=== PATIENT | female | born 1960 | race Caucasian/White ===

== ENCOUNTER 2020-05-23 08:00 | Outpatient (CLI) | payer OTHER | END 2020-05-23 23:59 | disposition home or self-care (01) | LOC: LAB.R 08:00 | PROVIDERS: ATTEND Physician Assistant Medical | DX: J02.9 Acute pharyngitis, unspecified (principal) | CPT/HCPCS: 87070 ==

== ENCOUNTER 2020-06-04 08:00 | Outpatient (CLI) | payer OTHER ==
[2020-06-04 19:46] LABS: CANDIDA GROUP DNA NEGATIVE (NEGATIVE); CANDIDA KRUSEI DNA NEGATIVE (NEGATIVE); TRICHOMONAS VAGINALIS DNA NEGATIVE (NEGATIVE)
== END 2020-06-04 23:59 | disposition home or self-care (01) ==
LOC: LAB.R 08:00
PROVIDERS: ATTEND Emergency Medicine
DX: B37.3 Candidiasis of vulva and vagina (principal)
CPT/HCPCS: 87661; 87801

== ENCOUNTER 2020-09-13 17:53 | Outpatient (CLI) | payer OTHER ==
[2020-09-13 19:45] LABS: BASOPHILS # (AUTO) 0.1 10^3/uL (0.0-0.1); BASOPHILS % (AUTO) 0.6 %; EOSINOPHILS # (AUTO) 0.4 10^3/uL (0.0-0.7); EOSINOPHILS % (AUTO) 3.9 %; HGB - HEMOGLOBIN 13.3 g/dL (12.0-16.0); LYMPHOCYTES # (AUTO) 3.2 10^3/uL (1.5-3.5); LYMPHOCYTES % (AUTO) 33.7 %; MEAN CORPUSCULAR HEMOGLOBIN 30.7 pg (27.0-31.0); MEAN CORPUSCULAR HGB CONC 32.3 g/dL (32.0-36.0); MEAN CORPUSCULAR VOLUME 95.2 fL (81.0-99.0); MEAN PLATELET VOLUME 10.2 fL (7.9-10.8); MONOCYTES # (AUTO) 0.7 10^3/uL (0.0-1.0); MONOCYTES % (AUTO) 6.9 %; NEUTROPHILS # (AUTO) 5.2 10^3/uL (1.5-6.6); NEUTROPHILS % (AUTO) 54.7 %; PLT - PLATELET COUNT 320 10^3/uL (130-450); RED BLOOD COUNT 4.33 10^6/uL (4.20-5.40); WHITE BLOOD COUNT 9.5 x10^3/uL (4.8-10.8)
[2020-09-13 20:06] LABS: ALBUMIN 3.8 g/dL (3.2-5.5); ALBUMIN/GLOBULIN RATIO 1.1 (1.0-2.2); BILIRUBIN,TOTAL 0.5 mg/dL (0.2-1.0); CALCIUM 9.9 mg/dL (8.5-10.3); CREATININE 0.8 mg/dL (0.4-1.0); TOTAL PROTEIN 7.3 g/dL (6.7-8.2)
== END 2020-09-13 17:54 | disposition home or self-care (01) ==
LOC: LAB.S 17:53
PROVIDERS: ATTEND Internal Medicine
DX: I10 Essential (primary) hypertension (principal); E03.9 Hypothyroidism, unspecified; E11.8 Type 2 diabetes mellitus with unspecified complications; Z79.4 Long term (current) use of insulin
CPT/HCPCS: 36415; 80053; 82985; 83036; 84443; 85025

== ENCOUNTER 2020-11-01 18:14 | Outpatient (CLI) | payer OTHER ==
[2020-11-01 20:20] LABS: CREATININE,URINE 109.1 mg/dL; MICROALBUMIN,URINE 3.6 mg/dL (0-300.0)
== END 2020-11-01 18:15 | disposition home or self-care (01) ==
LOC: LAB.S 18:14
PROVIDERS: ATTEND Internal Medicine
DX: E11.8 Type 2 diabetes mellitus with unspecified complications (principal); Z79.4 Long term (current) use of insulin
CPT/HCPCS: 36415; 82043; 82570; 82985

== ENCOUNTER 2021-01-14 13:31 | Outpatient (CLI) | payer OTHER ==
[2021-01-14 18:19] LABS: ALBUMIN 3.8 g/dL (3.2-5.5); ALBUMIN/GLOBULIN RATIO 1.2 (1.0-2.2); BILIRUBIN,TOTAL 0.6 mg/dL (0.2-1.0); CALCIUM 9.4 mg/dL (8.5-10.3); CREATININE 0.8 mg/dL (0.4-1.0); POTASSIUM 4.2 mmol/L (3.5-5.0)
[2021-01-14 21:36] LABS: ESTIMATED AVERAGE GLUCOSE 243 mg/dL (70-100); HEMOGLOBIN A1c% 10.1 % (4.27-6.07)
== END 2021-01-14 13:32 | disposition home or self-care (01) ==
LOC: LAB.S 13:31
PROVIDERS: ATTEND Internal Medicine
DX: I10 Essential (primary) hypertension (principal); E55.9 Vitamin D deficiency, unspecified; E11.8 Type 2 diabetes mellitus with unspecified complications; Z79.4 Long term (current) use of insulin
CPT/HCPCS: 36415; 80053; 82306; 82985; 83036

== ENCOUNTER 2021-01-27 13:16 | Outpatient (CLI) | payer OTHER ==
[2021-01-27 14:04] VITALS: BP 139/87
--- NOTE | 2021-01-27 14:04 | SLEEP CARE CONSULTATION ---
Information from patient questionnaire entered by Briana Jenkins. I have reviewed and concur with the information entered by Briana Jenkins. This document represents the service I personally performed and the decisions made by me, Laura Mendoza ARNP. History of Present Illness Service Date and Time: 01/27/2021 1316 Reason for Visit: New patient, Previously diagnosed sleep apnea Chief Complaint: reports: Unrefreshed sleep, Excessive daytime sleepiness, Fa tigue, Frequent awakenings at night Date of Onset: 15 years Usual bedtime: 11 pm Time it takes to fall asleep: 30-45 minutes Snores at night: No (unknown) Observed to quit breathing while asleep: No Number of times waking at night: 5-6 Reasons for waking at night: reports: Pain, Bathroom. denies: Choking, Gasping for air Toss, Turn, or Twitch while sleeping: No Recalls having dreams: No Usually gets out of bed at: 6:30 am Feels refreshed in the morning: No Morning headache: No Sleepy or fatigued during the day: Yes Ever fallen asleep while driving: No (almost; drowsy driving, no accidents) Takes day naps: No Dreams during day naps: No Prior sleep studies: Yes Year and Where: [facility] - long time ago Additional HPI information: I had the pleasure of seeing JAZLYN RAUSCH who was previously diagnosed with sleep apnea, she does not know severity. Her current complaints are excessive daytime sleepiness, fatigue, frequent night awakenings and unrefreshed sleep. She has not used a CPAP for about 20 years. She does not still have a copy of the previous sleep study. She does not know if she snores, no observed pauses and she denies gasping or choking in her sleep. She comes in today because her doctors have been encouraging her to get retested. She had a heart stent placed about 3 years ago, 01/2019. More recently she is having memory problems that are affecting her job. 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 Patient is and l rubén in [place]. Have you smoked in the past 12 months: No Alcohol use: No Caffeine use: Yes Caffeine amount and frequency: 1 cup of coffee 5 times a week Family History Family history of sleep disordered breathing: No Allergies and Home Medications Drug allergies reviewed: Yes (Benzoyal peroxide ) Home medication list reviewed: Yes (she did not bring list with her) Review of Systems Weight gain over past 5 years: 185 Weight loss over past 5 years: 170 Cardiovascular: reports: high blood pressure, leg or foot swelling, have to sleep sitting up Gastrointestinal: reports: heartburn, diarrhea Urinary: reports: incontinence, frequency, urgency Neurological: reports: gait or balance problems. denies: headaches Psychiatric: reports: anxiety, depression Ear/Nose/Throat: reports: dry mouth/throat, tonsillectomy, wisdom teeth removed Endocrine: reports: thyroid disease, sluggishness, excessive thirst, increased appetite, increased urination Musculoskeletal: reports: joint pain, neck pain, back pain, joint swelling, muscle pain or cramping, mobility problems Immunologic: denies: allergies to food or environment Physical Exam Blood Pressure: 139/87 Cuff size: wrist Heart Rate: 99 O2 Saturation: 96 Height: 5 ft 6 in Weight: 293 lb Body Mass Index: 47.2 BMI Classification: Morbidly Obese Impression and Plan 1. Suspected Obstructive Sleep Apnea-Hypopnea Syndrome, as previously diagnosed and suggested by a history of frequent awakening during the night, unrefreshed sleep, cognitive impairment, and excessive daytime sleepiness. I recommend proceeding to polysomnography to confirm the diagnosis and to assess severity. Patient is aware of what the sleep studies involve and we obtained agreement to proceed. The pathophysiology of obstructive sleep apnea-hypopnea syndrome was discussed with the patient and health risks of cardiovascular and cerebr ovascular disease if not treated. 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 Patient agreed to plan. Patient did not bring in a current list of her medications and does not remember them. She was asked to bring in list at next appointment. She voiced agreement. * Schedule polysomnography +- manual CPAP titration study and return in 1-2 weeks after the study to discuss result and initiate therapy. * Bring in medication list * Avoid long distance driving or driving when feeling sleepy. * Avoid alcohol, sedative and muscle relaxant around bedtime. * Attempt to lose weight. * Review instructions provided by trained office staff on how to prepare for the sleep study. * Return for follow-up after sleep study completed. Counseling Topics: Weight loss health impact Visit Type: In Office Time Spent with Patient (minutes): 25 Provider Statement: I spent 100% of the Face to Face Visit with the patient with greater than 50% spent counseling the patient and coordination of care.
== END 2021-01-27 13:17 | disposition home or self-care (01) ==
LOC: SC 13:16
PROVIDERS: ATTEND Nurse Practitioner Family
DX: G47.10 Hypersomnia, unspecified (principal); G47.8 Other sleep disorders; R41.89 Other symptoms and signs involving cognitive functions and awareness; E66.01 Morbid (severe) obesity due to excess calories; Z68.42 Body mass index [BMI] 45.0-49.9, adult
CPT/HCPCS: 99202; 99212

== ENCOUNTER 2021-02-10 10:18 | Outpatient (CLI) | payer OTHER | END 2021-02-10 10:19 | disposition home or self-care (01) | LOC: SC 10:18 | PROVIDERS: ATTEND Nurse Practitioner Family | DX: G47.33 Obstructive sleep apnea (adult) (pediatric) (principal); R00.0 Tachycardia, unspecified; R09.02 Hypoxemia; E66.01 Morbid (severe) obesity due to excess calories; Z68.42 Body mass index [BMI] 45.0-49.9, adult | CPT/HCPCS: 95806 ==

== ENCOUNTER 2021-02-21 16:19 | Outpatient (CLI) | payer OTHER ==
--- NOTE | 2021-02-21 16:43 | SLEEP CARE CONSULTATION ---
Information from patient questionnaire entered by Beni Galindo. I have reviewed and concur with the information entered by Beni Galindo. This document represents the service I personally performed and the decisions made by me, Laura Mendoza ARNP. History of Present Illness Service Date and Time: 02/21/2021 1619 Initial [place] Sleepiness Scale score: 17 (in 2020) Current [place] Sleepiness Scale score: 17 Additional HPI information: JAZLYN RAUSCH returns for follow up and results of the recently performed home sleep study. I explained the pathophysiology behind obstructive sleep apnea. We then spent quite a bit of time discussing different treatment options. For mild obstructive sleep apnea, surgery and oral appliance are alternatives to nasal CPAP therapy but in moderate or severe cases, nasal CPAP is the most effective and reliable treatment. Because apnea is primarily in supine position, then positional management therapy could be effective. Methods discussed such as positioning with pillows, using a T-shirt with tennis balls in the back, and shown commercial products that have a pillow format on back to prevent supine sleep. I reviewed the impact of weight changes on sleep apnea and strongly recommended losing weight. After some discussion, the patient opted to go with the nasal CPAP therapy. Nasal autoCPAP set at 4-15 cmH20 will be ordered with rationale explained. A manual titration study will be ordered if unable to find optimal pressure with office adjustments. I explained how CPAP machine works with sample devices Respironics Dreamstation and [employer] [id number] and what to expect when using the machine. Using CPAP every night in order to get used to it was emphasized. Patient advised to put CPAP mask on before getting into bed so as not to fall asleep without CPAP. To assist acclimation to CPAP use, it could also be used for a short time during day while reading or watching TV. The patient was instructed to call the CPAP supplier to discuss any mechanical problem that may occur. If the mask given is uncomfortable or is difficult to keep on through the night even with adjustment, contact the CPAP supplier as many will replace with another mask style if notified before 30 days. If snoring or perceives is not getting enough air or too much air from the machine, notify this office. [facility] patient education PAP tips reviewed and given to patient. Patient does not drink alcohol. Patient was cautioned about risks of drowsy driving until sleepiness symptoms resolve. Sleep Study - Results Type of Sleep Study: Home sleep study Prior sleep studies: Yes Year and Where: - long time ago Polysomnography/Home Sleep Study results: Physician Impression: The quality of the study is good. The length of the study is adequate (> 240 minutes). Please also see the tabulated and graphic data. 1. Obstructive Sleep Apnea-Hypopnea (ICD-10 G47.33), mild, with an AHI of 5.9/hr and melinda SaO2 of 78%. During the study, the patient had 14 apneas (13 obstructive, 0 central, 1 mixed) and 38 hypopneas. The longest episode lasted 83.0 seconds. The patient did not sleep supine during this study. (supine AHI was 0, and non-supine, 5.90). 2. Hypoxemia (ICD-10 R09.02), moderate, with the lowest oxygen saturation of 78 % and 7.0 minutes with SaO2 under 90%. Baseline oxygen saturation was normal (Average oxygen saturation was 94%). 3. Tachycardia with heart rate between 90 and 120 beats per minute. Allergies and Home Medications Home medication list reviewed: Yes (no changes) Review of Systems Review of systems same as previous: Yes (no changes) Physical Exam Heart Rate: 87 O2 Saturation: 97 Height: 5 ft 7.2 in Weight: 295 lb Body Mass Index: 45.9 BMI Classification: Morbidly Obese Impression and Plan 1. Obstructive Sleep Apnea-Hypopnea Syndrome, mild, with lowest oxygen saturation of 78%. Obviously this is the cause of the patients symptoms of unrefreshed sleep, and excessive daytime sleepiness. Positive pressure therapy could benefit hypertension, diabetes, coronary heart disease, anxiety, depression and gastric reflux. As mentioned above, the patient will be started on nasal autoCPAP therapy with pressure set at 4-15 cmH2O. A manual titration study will be completed if unable to find optimal treatment pressure with office adjustments. Compliance guidelines also reviewed. A copy of compliance guidelines will be given for reference at check out. Because the apnea is more severe supine, I instructed to avoid sleeping supine using pillow positioning until able to start CPAP use. 2. Hypoxemia, moderate, with the lowest oxygen saturation of 78 % and 7.0 minutes with SaO2 under 90%. His baseline oxygen saturation was normal with an average oxygen saturation of 94%. 3. Tachycardia, unspecified. HST recorded heart rate between 90 and 120 beats per minute. It is recommended that the patient may need an EKG to check cardiac rhythm for any abnormalities. Patient advised to follow up with PCP for rapid heart rate. * Nasal auto CPAP therapy, pressure at 4-15 cm H2O. * Follow up with PCP for tachycardia * Attempt to lose weight. * Avoid alcohol consumption near bedtime. * Avoid supine sleep until using CPAP. * The patient is again cautioned about driving until sleepiness completely resolves. * Return one month after CPAP obtained. I will assess response to therapy and compliance at that time. Counseling Topics: Weight loss health impact Visit Type: In Office Time Spent with Patient (minutes): 21 Provider Statement: I spent 100% of the Face to Face Visit with the patient with greater than 50% spent counseling the patient and coordination of care.
== END 2021-02-21 16:20 | disposition home or self-care (01) ==
LOC: SC 16:19
PROVIDERS: ATTEND Nurse Practitioner Family
DX: G47.33 Obstructive sleep apnea (adult) (pediatric) (principal); R00.0 Tachycardia, unspecified; E66.01 Morbid (severe) obesity due to excess calories; Z68.42 Body mass index [BMI] 45.0-49.9, adult
CPT/HCPCS: 99212; 99213

== ENCOUNTER 2021-03-04 13:50 | Outpatient (CLI) | payer OTHER | END 2021-03-04 13:51 | disposition home or self-care (01) | LOC: LAB.S 13:50 | PROVIDERS: ATTEND Internal Medicine | DX: E11.8 Type 2 diabetes mellitus with unspecified complications (principal); Z79.4 Long term (current) use of insulin | CPT/HCPCS: 82985 ==

== ENCOUNTER 2021-04-07 15:36 | Outpatient (CLI) | payer OTHER | END 2021-04-07 15:37 | disposition short-term general hospital (02) | LOC: EMS 15:36 | DX: R07.89 Other chest pain (principal); R11.0 Nausea; R06.02 Shortness of breath; M79.602 Pain in left arm; R42 Dizziness and giddiness | CPT/HCPCS: A0425; A0427 ==

== ENCOUNTER 2021-05-09 17:51 | Outpatient (CLI) | payer OTHER ==
[2021-05-09 20:18] LABS: ALBUMIN 3.3 g/dL (3.2-5.5); BILIRUBIN,TOTAL 0.4 mg/dL (0.2-1.0); CREATININE 0.7 mg/dL (0.4-1.0); POTASSIUM 4.3 mmol/L (3.5-5.0); TOTAL PROTEIN 6.6 g/dL (6.7-8.2)
[2021-05-09 20:21] LABS: CREATININE,URINE 104.8 mg/dL; MICROALBUM/CREATININE RATIO,UR 5.7 ug/mg (<30.0); MICROALBUMIN,URINE 0.6 mg/dL (0-300.0)
[2021-05-09 20:49] LABS: ESTIMATED AVERAGE GLUCOSE 263 mg/dL (70-100); HEMOGLOBIN A1c% 10.8 % (4.27-6.07)
== END 2021-05-09 17:52 | disposition home or self-care (01) ==
LOC: LAB.S 17:51
PROVIDERS: ATTEND Internal Medicine
DX: E11.8 Type 2 diabetes mellitus with unspecified complications (principal); Z79.4 Long term (current) use of insulin
CPT/HCPCS: 36415; 80053; 82043; 82570; 82985; 83036

== ENCOUNTER 2021-05-24 12:16 | Outpatient (CLI) | payer OTHER ==
--- NOTE | 2021-05-24 13:21 | XRAY Report ---
PROCEDURE: Knee 2 View BILAT INDICATIONS: KNEE PAIN TECHNIQUE: 412 views of the bilateral knee(s) were acquired. COMPARISON: None. FINDINGS: Bones: No fractures or dislocations. No suspicious bony lesions. There is asymmetric joint space n arrowing that is near severe on the left at the medial compartment versus moderately severe on the ri ght at the medial compartment. No effusion or loose body found, no trauma seen. Soft tissues: No joint effusion. No suspicious soft tissue calcifications. IMPRESSION: Asymmetric medial compartment knee joint osteoarthritis, near severe on the left and mod erately severe on the right. No acute disease. Reviewed by: Saul Rivera MD on 05/24/2021 1:19 PM PDT Approved by: Saul Rivera MD on 05/24/2021 1:19 PM PDT Station ID: [id number]
== END 2021-05-24 12:17 | disposition home or self-care (01) ==
LOC: DI 12:16
PROVIDERS: ATTEND Internal Medicine
DX: M17.0 Bilateral primary osteoarthritis of knee (principal); E11.8 Type 2 diabetes mellitus with unspecified complications; Z79.4 Long term (current) use of insulin

== ENCOUNTER 2021-06-01 11:12 | Outpatient (CLI) | payer OTHER | END 2021-06-01 11:13 | disposition home or self-care (01) | LOC: NS 11:12 | PROVIDERS: ATTEND Internal Medicine | DX: Z71.3 Dietary counseling and surveillance (principal); E11.8 Type 2 diabetes mellitus with unspecified complications; E66.01 Morbid (severe) obesity due to excess calories; Z68.43 Body mass index [BMI] 50.0-59.9, adult | CPT/HCPCS: 97802 ==

== ENCOUNTER 2021-09-29 10:59 | Outpatient (CLI) | payer MEDICAID ==
[2021-09-29 15:24] LABS: BUN - BLOOD UREA NITROGEN 21 mg/dL (6-20); CALCIUM 9.1 mg/dL (8.5-10.3); CARBON DIOXIDE - CO2 23 mmol/L (21-32); CHLORIDE 105 mmol/L (101-111); CHOL/HDL RATIO 2.5 (<4.4); CHOLESTEROL 129 mg/dL; CREATININE 0.8 mg/dL (0.4-1.0); GFR - MDRD 73 (>89); GLUCOSE 139 mg/dL (70-100); HDL CHOLESTEROL 52 mg/dL; LDL CHOLESTEROL,CALCULATED 60 mg/dL; LDL/HDL RATIO 1.2 (<4.4); SODIUM 139 mmol/L (135-145); TRIGLYCERIDES 86 mg/dL; VLDL CHOLESTEROL 17 mg/dL
[2021-09-29 15:29] LABS: CREATININE,URINE 117.5 mg/dL; MICROALBUM/CREATININE RATIO,UR 6.8 ug/mg (<30.0); MICROALBUMIN,URINE 0.8 mg/dL (0-300.0)
[2021-09-29 20:23] LABS: ESTIMATED AVERAGE GLUCOSE 186 mg/dL (70-100); HEMOGLOBIN A1c% 8.1 % (4.27-6.07)
== END 2021-09-29 11:00 | disposition home or self-care (01) ==
LOC: LAB.S 10:59
PROVIDERS: ATTEND Nurse Practitioner
DX: E11.65 Type 2 diabetes mellitus with hyperglycemia (principal); E78.2 Mixed hyperlipidemia
CPT/HCPCS: 36415; 80048; 80061; 82043; 82570; 83036; 83721

== ENCOUNTER 2021-10-19 10:17 | Outpatient (CLI) | payer MEDICAID ==
[2021-10-19 11:01] LABS: CHOL/HDL RATIO 2.3 (<4.4); CHOLESTEROL 123 mg/dL; HDL CHOLESTEROL 53 mg/dL; LDL CHOLESTEROL,CALCULATED 45 mg/dL; LDL/HDL RATIO 0.8 (<4.4); TRIGLYCERIDES 124 mg/dL; VLDL CHOLESTEROL 25 mg/dL
== END 2021-10-19 10:18 | disposition home or self-care (01) ==
LOC: LAB 10:17
PROVIDERS: ATTEND Nurse Practitioner
DX: E78.5 Hyperlipidemia, unspecified (principal); I25.10 Atherosclerotic heart disease of native coronary artery without angina pectoris
CPT/HCPCS: 36415; 80061; 83721

== ENCOUNTER 2022-01-01 08:00 | Outpatient (CLI) | payer MEDICAID ==
[2022-01-01 10:26] LABS: THYROID STIMULATING HORMONE 1.44 uIU/mL (0.34-5.60)
== END 2022-01-01 23:59 | disposition home or self-care (01) ==
LOC: LAB 08:00
PROVIDERS: ATTEND Internal Medicine
DX: E03.9 Hypothyroidism, unspecified (principal)
CPT/HCPCS: 36415; 84443

== ENCOUNTER 2022-05-21 18:12 | Emergency (ER) | payer MEDICAID ==
[2022-05-21] MEDS ORDERED: SODIUM CHLORIDE 0.9% 1,000 ML IV STA (18:55)
[2022-05-21 19:25] LABS: BASOPHILS # (AUTO) 0.1 10^3/uL (0.0-0.1); BASOPHILS % (AUTO) 0.7 %; EOSINOPHILS # (AUTO) 0.2 10^3/uL (0.0-0.7); EOSINOPHILS % (AUTO) 2.9 %; HCT - HEMATOCRIT 41.4 % (37.0-47.0); HGB - HEMOGLOBIN 13.5 g/dL (12.0-16.0); LYMPHOCYTES # (AUTO) 2.4 10^3/uL (1.5-3.5); LYMPHOCYTES % (AUTO) 28.1 %; MEAN CORPUSCULAR HEMOGLOBIN 30.8 pg (27.0-31.0); MEAN CORPUSCULAR HGB CONC 32.6 g/dL (32.0-36.0); MEAN CORPUSCULAR VOLUME 94.5 fL (81.0-99.0); MEAN PLATELET VOLUME 9.3 fL (7.9-10.8); MONOCYTES # (AUTO) 0.8 10^3/uL (0.0-1.0); MONOCYTES % (AUTO) 9.4 %; NEUTROPHILS # (AUTO) 4.9 10^3/uL (1.5-6.6); NEUTROPHILS % (AUTO) 58.5 %; PLT - PLATELET COUNT 273 10^3/uL (130-450); RED BLOOD COUNT 4.38 10^6/uL (4.20-5.40); WHITE BLOOD COUNT 8.4 x10^3/uL (4.8-10.8)
--- NOTE | 2022-05-21 19:28 | CT Report ---
PROCEDURE: CERVICAL SPINE WO INDICATIONS: fall, neck pain TECHNIQUE: Noncontrast 3 mm thick sections acquired from the skull base to the T4 level. Sagittal and coronal r eformats were then constructed. For radiation dose reduction, the following was used: automated exp osure control, adjustment of mA and/or kV according to patient size. COMPARISON: None. FINDINGS: Image quality: Excellent. Bones: No fractures or dislocations. Mild to moderate degenerative change in the cervical spine. Vis ualized superior ribs are intact. Soft tissues: Prevertebral soft tissues are normal in thickness. No paravertebral hematomas. No ap ical pneumothoraces. IMPRESSION: No acute osseous abnormality. Reviewed by: Thompson Gillis MD on 05/21/2022 7:27 PM PDT Approved by: Thompson Gillis MD on 05/21/2022 7:27 PM PDT Station ID: [id number]
--- NOTE | 2022-05-21 19:29 | CT Report ---
PROCEDURE: HEAD WO INDICATIONS: multiple falls, head injury today, h/o L stroke TECHNIQUE: Noncontrast 4.5 mm thick angled axial sections acquired from the foramen magnum to the vertex. For r adiation dose reduction, the following was used: automated exposure control, adjustment of mA and/or kV according to patient size. COMPARISON: None. FINDINGS: Image quality: Excellent. CSF spaces: Basal cisterns are patent. No extra-axial fluid collections. Ventricles are normal in size and shape. Brain: No midline shift. No intracranial masses or hemorrhage. Maria-white matter interface is norm al. Skull and face: Calvarium and visualized facial bones are intact, without suspicious lesions. Sinuses: Visualized sinuses and mastoids are clear. IMPRESSION: No acute intracranial abnormality. Reviewed by: Thompson Gillis MD on 05/21/2022 7:28 PM PDT Approved by: Thompson Gillis MD on 05/21/2022 7:28 PM PDT Station ID: [id number]
[2022-05-21 19:36] LABS: ALBUMIN 3.4 g/dL (3.2-5.5); ALBUMIN/GLOBULIN RATIO 0.9 (1.0-2.2); BILIRUBIN,TOTAL 0.5 mg/dL (0.2-1.0); CREATININE 0.9 mg/dL (0.4-1.0)
[2022-05-21 19:45] LABS: POTASSIUM 4.5 mmol/L (3.5-5.0)
[2022-05-21] MEDS ORDERED: KETOROLAC 30 MG/ML VIAL IVP STA (20:25)
[2022-05-21 20:39] LABS: BILIRUBIN,URINE NEGATIVE (NEGATIVE); GLUCOSE, URINE (UA) >=1000 mg/dL (NEGATIVE); KETONES,URINE (UA) 40 mg/dL (NEGATIVE); LEUKOCYTE ESTERASE, URINE NEGATIVE (NEGATIVE); NITRITE,URINE NEGATIVE (NEGATIVE); OCCULT BLOOD,URINE NEGATIVE (NEGATIVE); PH,URINE 5.5 PH (5.0-7.5); PROTEIN,URINE NEGATIVE (NEGATIVE); UROBILINOGEN,URINE 0.2 (NORMAL) E.U./dL (NORMAL)
[2022-05-21 20:43] LABS: CLARITY,URINE CLEAR (CLEAR)
--- NOTE | 2022-05-21 21:03 | ED Physician Documentation ---
History of Present Illness - Stated complaint Stated Complaint: UPER BODY PX - Chief complaint Chief Complaint: General - History obtained from History obtained from: Patient, Family - History of Present Illness Timing: Today Pain level max: 5 Pain level now: 5 - Additonal information Additional information: Patient is a 61-year-old female who presents to the emergency department after a fall onto gravel today. She was walking with a walker when she fell backwards. She complains of bilateral shoulder and upper chest pain. Worse with movement, better with rest. Has not taken anything for the pain. She did strike her head. No loss of consciousness. She states she does not believe she is on blood thinners. Does not know her medications and did not bring them with her. No loss of consciousness. No vomiting. No numbness or tingling. Her friend states that she has fallen several times over the past few weeks. Does have residual left-sided deficits from a prior stroke. No urinary symptoms. No fevers. No cough. No chills. Review of Systems Constitutional: denies: Fever, Chills Throat: denies: Sore throat GI: denies: Nausea, Vomiting, Diarrhea Skin: denies: Rash Musculoskeletal: denies: Neck pain, Back pain Neurologic: denies: Headache PD PAST MEDICAL HISTORY - Past Medical History Past Medical History: Yes Neuro: CVA - Present Medications Home Medications: Ambulatory Orders Medication Instructions Recorded Confirmed Meloxicam [Mobic] 7.5 mg PO BID PRN #20 tablet 05/21/22 - Allergies Allergies/Adverse Reactions: Allergies Allergy/AdvReac Type Severity Reaction Status Date / Time No Known Drug Allergies Allergy Verified 05/21/22 18:24 - Social History Does the pt smoke?: No Smoking Status: Never smoker Does the pt have substance abuse?: No - Immunizations Immunizations are current?: Yes - POLST Patient has POLST: No PD ED PE NORMAL - Vitals Vital signs reviewed: Yes - General General: Alert and oriented X 3, No acute distress - HEENT HEENT: PERRL, Moist mucous membranes - Neck Neck: Supple, no meningeal sign - Cardiac Cardiac: RRR, Strong equal pulses - Respiratory Respiratory: No respiratory distress, Clear bilaterally - Abdomen Abdomen: Soft, Non tender, Non distended - Back Back: No CVA TTP, No spinal TTP - Derm Derm: Warm and dry, No rash - Extremities Extremities: No deformity, No tenderness to palpate, Normal ROM s pain, No edema, No calf tenderness / cord - Neuro Neuro: Alert and oriented X 3, director of individual giving 2-12 intact, No motor deficit, No sensory deficit, Normal speech Eye Opening: Spontaneous Motor: Obeys Commands Verbal: Oriented GCS Score: 15 - Psych Psych: Normal mood, Normal affect Results - Vitals Vitals: Vital Signs - 24 hr 05/21/22 05/21/22 05/21/22 18:24 20:28 21:09 Temperature 36.5 C 36.5 C Heart Rate 95 84 81 Respiratory 16 20 20 Rate Blood Pressure 140/90 H 166/99 H 161/88 H O2 Saturation 94 99 99 Oxygen O2 Source Room air - Labs Labs: Laboratory Tests 05/21/22 05/21/22 05/21/22 19:18 19:18 20:23 WBC 8.4 RBC 4.38 Hgb 13.5 Hct 41.4 MCV 94.5 MCH 30.8 MCHC 32.6 RDW 13.0 Plt Count 273 MPV 9.3 Neut # (Auto) 4.9 Lymph # (Auto) 2.4 [place] # (Auto) 0.8 Eos # (Auto) 0.2 Baso # (Auto) 0.1 Absolute Nucleated RBC 0.00 Nucleated RBC % 0.0 Sodium 135 Potassium 4.5 Chloride 96 L Carbon Dioxide 28 Anion Gap 11.0 BUN 16 Creatinine 0.9 Estimated GFR (MDRD) 64 L Glucose 206 H Calcium 9.0 Total Bilirubin 0.5 AST 15 ALT 18 Alkaline Phosphatase 75 Total Protein 7.0 Albumin 3.4 Globulin 3.6 Albumin/Globulin Ratio 0.9 L Urine Color LIGHT YELLOW Urine Clarity CLEAR Urine pH 5.5 Ur Specific [place] 1.020 Urine Protein NEGATIVE Urine Glucose (UA) >=1000 H Urine Ketones 40 H Urine Occult Blood NEGATIVE Urine Nitrite NEGATIVE Urine Bilirubin NEGATIVE Urine Urobilinogen 0.2 (NORMAL) Ur Leukocyte Esterase NEGATIVE Ur Microscopic Review NOT INDICATED Urine Culture Comments NOT INDICATED - Rads (name of study) Head CT Radiology: Final report received, EMP read contemporaneously, See rad report Cervical spine CT Radiology: Final report received, EMP read contemporaneously, See rad report PD MEDICAL DECISION MAKING - ED course Complexity details: reviewed results, re-evaluated patient, considered differential, d/w patient, d/w family ED course: No acute findings on head CT or cervical spine CT. No significant lab abnormalities other than mild dehydration. Has some hyperglycemia as well. No evidence of infection. Ambulating with a walker without any difficulty here. Feels better after Toradol. No indication for imaging of the shoulders. Full range of motion without pain. No evidence of fracture or dislocation. Patient counseled regarding signs and symptoms for which I believe and urgent re- evaluation would be necessary. Patient with good understanding of and agreement to plan and is comfortable going home at this time This document was made in part using voice recognition software. While efforts are made to proofread this document, sound alike and grammatical errors may occur. Departure - Departure Disposition: Home, Self Care Clinical Impression: Shoulder strain Qualifiers: Encounter type: initial encounter Laterality: unspecified laterality Qualified Code(s): S46.919A - Strain of unspecified muscle, fascia and tendon at shoulder and upper arm level, unspecified arm, initial encounter Fall Qualifiers: Encounter type: initial encounter Qualified Code(s): W19.XXXA - Unspecified fall, initial encounter Head injury Qualifiers: Encounter type: initial encounter Qualified Code(s): S09.90XA - Unspecified injury of head, initial encounter Condition: Good Instructions: ED Head Injury Closed, ED Strain Muscle Ext Follow-Up: your,doctor in 1 week [Other] Prescriptions: Meloxicam [Mobic] 7.5 mg PO BID PRN #20 tablet PRN Reason: Pain Comments: Please follow-up with your doctor for further care. Return if you worsen. There are no acute findings on your CT scans or laboratory testing today other than mild dehydration and hyperglycemia. Your prescriptions were sent to [facility] in [place]. Discharge Date/Time: 05/21/22 21:09
[2022-05-21 21:10] VITALS: BP 161/88
== END 2022-05-21 21:09 | disposition home or self-care (01) ==
LOC: ED 18:12
DX: S09.90XA Unspecified injury of head, initial encounter (principal); W18.30XA Fall on same level, unspecified, initial encounter
CPT/HCPCS: 36415; 80053; 81001; 81003; 85025; 87086; 96361; 96374; 99284

== ENCOUNTER 2022-09-17 07:00 | Outpatient (CLI) | payer MEDICAID ==
--- NOTE | 2022-09-17 16:44 | XRAY Report ---
PROCEDURE: Chest 2 View X-Ray INDICATIONS: INFLUENZA A TECHNIQUE: 2 views of the chest were acquired. COMPARISON: None FINDINGS: Surgical changes and devices: None. Lungs and pleura: No pleural effusions or pneumothorax. Poorly defined opacities can be seen involvi ng both lung bases. Mild generalized interstitial prominence can be seen. The lung volumes are noted. Mediastinum: Mediastinal contours are normal. Heart size is normal. Bones and chest wall: No suspicious bony abnormalities. Soft tissues appear unremarkable. IMPRESSION: Poorly defined pulmonary opacities are seen, which are consistent with the given history of viral inf ection. Reviewed by: William Link MD on 09/17/2022 3:43 PM [facility] Approved by: William Link MD on 09/17/2022 3:43 PM [facility] Station ID: [id number]
== END 2022-09-17 23:59 | disposition home or self-care (01) ==
LOC: DI.S 07:00
PROVIDERS: ATTEND Emergency Medicine
DX: J09.X2 Influenza due to identified novel influenza A virus with other respiratory manifestations (principal); R91.8 Other nonspecific abnormal finding of lung field

== ENCOUNTER 2023-10-17 09:27 | Outpatient (CLI) | payer MEDICAID ==
[2023-10-17 09:49] LABS: ESTIMATED AVERAGE GLUCOSE 275 mg/dL (70-100); HEMOGLOBIN A1c% 11.2 % (4.27-6.07)
[2023-10-17 09:57] LABS: CHOL/HDL RATIO 2.5 (<4.4); CHOLESTEROL 125 mg/dL; HDL CHOLESTEROL 51 mg/dL; LDL CHOLESTEROL,CALCULATED 21 mg/dL; LDL/HDL RATIO 0.4 (<4.4); TRIGLYCERIDES 264 mg/dL (48-352); VLDL CHOLESTEROL 53 mg/dL
[2023-10-17 09:59] LABS: MICROALBUMIN,URINE < 0.7 mg/dL
[2023-10-17 10:03] LABS: ALBUMIN 3.5 g/dL (3.2-5.5); ALBUMIN/GLOBULIN RATIO 1.1 (1.0-2.2); ALKALINE PHOSPHATASE 161 IU/L (42-121); ALT ALANINE AMINOTRANSFERASE 19 IU/L (10-60); AST ASPARTATE AMINOTRANSFERASE 10 IU/L (10-42); BILIRUBIN,TOTAL 0.2 mg/dL (0.2-1.0); BUN - BLOOD UREA NITROGEN 21 mg/dL (6-20); CALCIUM 9.1 mg/dL (8.5-10.3); CARBON DIOXIDE - CO2 31 mmol/L (21-32); CHLORIDE 97 mmol/L (101-111); CREATININE 0.9 mg/dL (0.6-1.3); GFR - MDRD 64 (>89); GLUCOSE 500 mg/dL (74-104); POTASSIUM 4.6 mmol/L (3.5-4.5); SODIUM 134 mmol/L (135-145); TOTAL PROTEIN 6.7 g/dL (6.4-8.9)
--- NOTE | 2023-10-17 13:55 | MRI Report ---
PROCEDURE: Brain WO INDICATIONS: POSTERIOR STROKE TECHNIQUE: Noncontrast axial T1 spin echo, axial T2 fast spin echo, sagittal and axial FLAIR, coronal T2 fast sp in echo, axial gradient echo, axial diffusion and ADC through the brain. COMPARISON: Correlation is made with prior head CT, 05/21/2022 FINDINGS: Image quality: Excellent. CSF Spaces: Basal cisterns are patent. No extra-axial fluid collections. Ventricles are normal in size and shape. Brain: No intracranial masses or hemorrhage. Maria/white matter interface is normal. Brainstem appe ars normal. Diffusion-weighted images demonstrate no acute ischemic insult. No chronic ischemic ins ults. Normal intravascular flow voids are present. Skull and face: Calvarium has normal marrow signal. Orbits appear normal. Sinuses: Sinuses and mastoids are clear. IMPRESSION: No findings of acute or subacute infarction are seen. No prior territorial infarction can be seen. Reviewed by: William Link MD on 10/17/2023 12:54 PM [place] Approved by: William Link MD on 10/17/2023 12:54 PM [facility] Station ID: [id number]
== END 2023-10-17 09:28 | disposition home or self-care (01) ==
LOC: DI 09:27
PROVIDERS: ATTEND Psychiatry & Neurology Neurology
DX: I77.74 Dissection of vertebral artery (principal); I63.50 Cerebral infarction due to unspecified occlusion or stenosis of unspecified cerebral artery; E11.65 Type 2 diabetes mellitus with hyperglycemia; Z79.4 Long term (current) use of insulin; E78.5 Hyperlipidemia, unspecified
CPT/HCPCS: 36415; 80053; 80061; 82043; 82570; 83036; 83721

== ENCOUNTER 2023-10-18 13:06 | Outpatient (CLI) | payer MEDICAID ==
[2023-10-18] MEDS ORDERED: iohexoL-300 100 ML VIAL ONE (13:49)
[2023-10-18] MEDS ORDERED: iohexoL-300 100 ML VIAL IVP ONE (14:32)
--- NOTE | 2023-10-18 16:04 | CT Report ---
PROCEDURE: Angio Head/Neck INDICATIONS: POSTERIOR STROKE TECHNIQUE: Pre-contrast 4.5 mm thick sections acquired from the foramen magnum to the vertex. After the adminis tration of intravenous contrast, 1 mm thick sections acquired from the aortic arch through the [place]. Post-contrast 4.5 mm thick sections then re-acquired from the foramen magnum to the vert ex. 3-dimensional dcromzl-oakaxoank-wsqyverkad (MIP) and/or volume rendering reformats were acquired of the central intracranial vasculature and neck separately. For radiation dose reduction, the foll owing was used: automated exposure control, adjustment of mA and/or kV according to patient size. CONTRAST: See chart COMPARISON: Head CT dated 05/21/2022, brain MRI dated 10/17/2023 FINDINGS: Image quality: Excellent. BRAIN: CSF spaces: Ventricles are normal in size and shape. Basal cisterns are patent. No extra-axial flu id collections. Brain: No midline shift. No intracranial bleeds or masses. Maria-white matter interface appears int act. Skull and face: Calvarium and facial bones appear intact, without suspicious lesions. Orbits appear normal. Sinuses: Sinuses and mastoids are clear. HEAD CT ANGIOGRAPHY: Anterior circulation: Intracranial internal carotid arteries are normal in size and flow. The flow within the paired anterior cerebral arteries is normal and symmetric. The flow within the middle cer ebral arteries is normal and symmetric. The anterior communicating artery is seen. No aneurysms are seen. Posterior circulation: Left vertebral artery is dominant and widely patent, giving rise to a normal c aliber basilar artery. 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 V4 segment opacifies in a retrograde manner. Chronicity of right vertebral artery occlusion is uncertain. Flow within the posterior cerebral arteries is normal and symmetric. There is origin of the right p osterior cerebral artery of the anterior circulation. No aneurysms are seen. NECK CT ANGIOGRAPHY: Carotid system: The great vessels demonstrate a conventional anatomy as they arise from the aortic a rch. The origins of the common carotid arteries appear patent. The common carotid arteries demonstr ate normal caliber and courses. The bifurcation regions are both widely patent. Mild, less than 50% proximal right internal carotid artery stenosis. Left internal carotid is patent. Posterior circulation: The origins of the vertebral arteries both appear widely patent. The more samuel perior extracranial portions of both vertebral arteries also demonstrate normal courses and calibers. They join to form a normal appearing basilar artery. Soft tissues: Visualized neck soft tissues demonstrate no suspicious abnormalities. Bones: No suspicious bony lesions. Visualized cervical spine appears normally aligned. IMPRESSION: 1. 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 The V4 segment of the right vertebral artery fills in a retrograde manner. The chr onicity of right vertebral artery occlusion is uncertain. 2. Widely patent left vertebral artery, a dominant vessel, giving rise to a normal caliber basilar ar courtney. 3. Otherwise unremarkable CTA head. 4. Less than 50% right internal carotid artery stenosis. Patent left internal carotid. The estimate of stenosis included in the report of the imaging study was calculated using the NASCET method Reviewed by: Jaime Garner MD on 10/18/2023 4:03 PM PST Approved by: Jaime Garner MD on 10/18/2023 4:03 PM PST Station ID: [id number]
== END 2023-10-18 13:07 | disposition home or self-care (01) ==
LOC: DI 13:06
PROVIDERS: ATTEND Psychiatry & Neurology Neurology
DX: I63.50 Cerebral infarction due to unspecified occlusion or stenosis of unspecified cerebral artery (principal); I77.74 Dissection of vertebral artery; I65.01 Occlusion and stenosis of right vertebral artery
CPT/HCPCS: 70496; 70498; Q9967